=== PATIENT | female | born 1945 | race Caucasian/White ===

== ENCOUNTER 2018-07-07 08:29 | Observation (INO) | payer MEDICARE ==
[~2018-07-07] VITALS: Ht 162.6 cm; Wt 65.5 kg
[2018-07-07] MEDS ORDERED: NITROGLYCERIN SINGLE TAB 0.4 MG SL PRN (09:00)
[2018-07-07] MEDS ORDERED: SODIUM CHLORIDE FLUSH 10ML SYR IVF ONE (09:00)
[2018-07-07] MEDS ORDERED: ASPIRIN 81 MG TABLET CHEW PO ONE (09:00)
[2018-07-07 09:23] LABS: BASOPHILS # (AUTO) 0.03 x10^3/uL (0-0.1); BASOPHILS % (AUTO) 0 % (0-1); EOSINOPHILS # (AUTO) 0.03 x10^3/uL (0-0.4); EOSINOPHILS % (AUTO) 0 % (1-7); LYMPHOCYTES # (AUTO) 1.46 x10^3/uL (1-3.4); LYMPHOCYTES % (AUTO) 18 % (22-44); MD NO; MEAN CORPUSCULAR HEMOGLOBIN 30.3 pg (27.0-34.8); MEAN CORPUSCULAR VOLUME 91.8 fL (80-100); MEAN PLATELET VOLUME 8.7 fL (7.4-10.4); MONOCYTES # (AUTO) 0.35 x10^3/uL (0.2-0.8); MONOCYTES % (AUTO) 4 % (2-9); NEUTROPHILS # (AUTO) 6.47 x10^3/uL (1.8-6.8); NEUTROPHILS % (AUTO) 78 % (42-75); PLATELET COUNT 225 x10^3/uL (130-400); RED BLOOD COUNT 4.89 x10^6/uL (3.82-5.3)
[2018-07-07] MEDS ORDERED: NITROGLYCERIN SINGLE TAB 0.4 MG SL ONE (09:28)
[2018-07-07] MEDS ORDERED: ASPIRIN 81 MG TABLET CHEW ONE (09:28)
--- NOTE | 2018-07-07 09:30 | NUR ---
WAITING FOR LABS AND RAD, NAD, WCTM
--- NOTE | 2018-07-07 10:01 | NUR ---
BREAK NOTE: PT. IS RESTING WITHOUT CONCERNS. VSS.
[2018-07-07 10:04] LABS: ALANINE AMINOTRANSFERASE 35 U/L (12-78); ALBUMIN 4.1 g/dL (3.4-5.0); ANION GAP 9 mmol/L (5-15); CALCIUM 8.8 mg/dL (8.5-10.1); CHLORIDE 110 mmol/L (98-107); CREATININE 0.76 mg/dL (0.55-1.02)
[2018-07-07 10:17] LABS: ALKALINE PHOSPHATASE 86 U/L (45-117); BILIRUBIN,TOTAL 0.5 mg/dL (0.2-1.0); TOTAL PROTEIN 7.4 g/dL (6.4-8.2); TROPONIN I < 0.015 ng/mL (0.000-0.045)
--- NOTE | 2018-07-07 11:00 | NUR ---
PT UP FOR RECHECK, AT BEDSIDE TO REASSESS
[2018-07-07] MEDS ORDERED: SODIUM CHLORIDE FLUSH 10ML SYR IVF PRN (11:30)
--- NOTE | 2018-07-07 11:30 | NUR ---
PT TO BE ADMITTED, AWAITING BED, WCTM
[2018-07-07] MEDS ORDERED: ONDANSETRON ODT 4 MG PO PRN (12:30)
[2018-07-07] MEDS ORDERED: ACETAMINOPHEN 325 MG TABLET PO PRN (12:30)
[2018-07-07] MEDS ORDERED: ENALAPRILAT 1.25 MG/ML, 2ML IVPush PRN (12:30)
[2018-07-07] MEDS ORDERED: hydrALAzine 20 MG/ML, 1ML IVPush PRN (12:30)
[2018-07-07 12:47] LABS: TROPONIN I < 0.015 ng/mL (0.000-0.045)
[2018-07-07 13:00] VITALS: BP 163/88
[2018-07-07] MEDS ORDERED: PLEASE ENTER ALLERGIES MC SCH (13:00)
[2018-07-07 18:40] VITALS: BP 131/36
[2018-07-07] MEDS ORDERED: DIPHENHYDRAMINE 50 MG CAPSULE PO PRN (20:00)
[2018-07-08 01:35] VITALS: BP 127/78
[2018-07-08 05:15] LABS: BASOPHILS # (AUTO) 0.04 x10^3/uL (0-0.1); BASOPHILS % (AUTO) 1 % (0-1); EOSINOPHILS % (AUTO) 3 % (1-7); LYMPHOCYTES # (AUTO) 2.73 x10^3/uL (1-3.4); LYMPHOCYTES % (AUTO) 38 % (22-44); MD NO; MEAN CORPUSCULAR HEMOGLOBIN 31.5 pg (27.0-34.8); MEAN CORPUSCULAR HGB CONC 34.1 g/dL (32.4-35.8); MEAN CORPUSCULAR VOLUME 92.4 fL (80-100); MEAN PLATELET VOLUME 8.8 fL (7.4-10.4); MONOCYTES # (AUTO) 0.52 x10^3/uL (0.2-0.8); MONOCYTES % (AUTO) 7 % (2-9); NEUTROPHILS % (AUTO) 52 % (42-75); PLATELET COUNT 199 x10^3/uL (130-400); RED CELL DISTRIBUTION WIDTH 13.8 % (9.6-15.2)
[2018-07-08 05:16] LABS: ANION GAP 8 mmol/L (5-15); CALCIUM 8.7 mg/dL (8.5-10.1); CHLORIDE 111 mmol/L (98-107)
[2018-07-08 05:28] LABS: CHOL/HDL RATIO 2.4; CHOLESTEROL, TOTAL 159 mg/dL (140-239); CREATININE 0.73 mg/dL (0.55-1.02); HDL CHOL % 42 % (28-40); HDL CHOLESTEROL (DIRECT) 67 mg/dL (40-60); LDL CHOLESTEROL,CALCULATED 80 mg/dL (54-169); LDL/HDL RATIO 1.2 (0.5-3.0); TRIGLYCERIDES 58 mg/dL (50-200); VLDL CHOLESTEROL 12 mg/dL (0-25)
[2018-07-08] MEDS ORDERED: ASPIRIN 81 MG TABLET EC PO SCH (07:00)
[2018-07-08] MEDS ORDERED: POTASSIUM CHLORIDE 10% 40 MEQ/30 ML UDC PO ONE (07:00)
[2018-07-08 07:37] VITALS: BP 125/85
[2018-07-08] MEDS ORDERED: ATOR40TA78 PO (10:53)
[2018-07-08] MEDS ORDERED: ASPI81TA45 PO (10:53)
[2018-07-08] MEDS ORDERED: ATORVASTATIN 40 MG TABLET PO SCH (21:00)
== END 2018-07-08 11:33 | disposition home or self-care (01) ==
LOC: ED 09:09 → INTOOBSV 11:06 → EDIP 11:06 → 5SO 12:45
PROVIDERS: ADMIT Hospitalist; ATTEND Hospitalist
DX: R07.89 Other chest pain (principal); I10 Essential (primary) hypertension; Z80.8 Family history of malignant neoplasm of other organs or systems; Z82.49 Family history of ischemic heart disease and other diseases of the circulatory system
CPT/HCPCS: 36415; 71045; 78452; 80048; 80053; 80061; 83690; 83735; 84100; 84443; 84484; 85025; 85379; 93005; 93017; 99284; A9502; C9898; G0378

== ENCOUNTER → 2019-07-02 | Outpatient (CLI) | payer MEDICARE ==
[~2019-07-02] MED LIST: ASPI81TA45 PO; ATOR40TA78 PO
== END | disposition home or self-care (01) ==
LOC: CFH 08:47
PROVIDERS: ATTEND Internal Medicine Cardiovascular Disease
DX: I08.8 Other rheumatic multiple valve diseases (principal); I77.819 Aortic ectasia, unspecified site; I10 Essential (primary) hypertension
CPT/HCPCS: 93306